=== PATIENT | female | born 1965 | race Caucasian/White ===

== ENCOUNTER 2016-09-29 20:38 | Observation (INO) | payer OTHER ==
[~2016-09-29] VITALS: Ht 175.3 cm; Wt 77.7 kg
[~2016-09-29 20:38] MED LIST: POLY10O LEFT EYE
[2016-09-29] MEDS ORDERED: SODIUM CHLOR 0.9% 1000 ML INJ 1,000 ML IV ONE ×2 (20:42→22:30)
[2016-09-29] MEDS ORDERED: ACTIVATED CHARCOAL LIQUID 25 GM/120 ML BTL PO/NG ONE (20:45)
[2016-09-29] MEDS ORDERED: SODIUM CHLORIDE 0.9% FLUSH 5 ML FLUSH IVF PRN (20:45)
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
[2016-09-29] MEDS ORDERED: ONDANSETRON HCL 4 MG/2 ML VIAL ONE (21:00)
[2016-09-29 21:32] LABS: BLOOD GAS BASE EXCESS 0.4 mmol/L (-2-2); BLOOD GAS CARBOXYHEMOGLOBIN 5.4 % (0-4); BLOOD GAS HCO3 24 mmol/L (22-26); BLOOD GAS METHEMOGLOBIN 2.1 % (0-2); BLOOD GAS O2 HGB SATURATION 90 % (90-100); BLOOD GAS OXYGEN CONTENT 17.8 Vol % (12.0-20.0); BLOOD GAS PCO2 38 mmHg (38-42); BLOOD GAS PO2 89 mmHG (61-120); CRITICAL VALUE YES; TEMP CORR TO 98.6
[2016-09-29 21:33] LABS: DRAW SITE RT RADIAL; FIO2 21 %; NUMBER OF ARTERIAL PUNCTURES 1; OXYGEN DEVICE ROOM AIR; STAT NO; ULNAR PULSE PRESENT
[2016-09-29 21:35] VITALS: BP 125/78; PULSE 65; RESP 16; TEMP 98.5; O2SAT 98
[2016-09-29 21:37] VITALS: RESP 16
--- NOTE | 2016-09-29 21:38 | RADRPT ---
EXAM DATE/TIME: 09/29/2016 21:00 [facility] COMPARISON: No previous studies available for comparison. INDICATIONS : Syncopal episode. MEDICAL HISTORY : None. SURGICAL HISTORY : None. ENCOUNTER: Initial ACUITY: 1 day PAIN SCORE: 0/10 LOCATION: Bilateral chest FINDINGS: A single view of the chest demonstrates the lungs to be symmetrically aerated without evidence of mas s, infiltrate or effusion. The cardiomediastinal contours are unremarkable. Osseous structures are intact. CONCLUSION: No acute disease. Timbo Marcus MD on September 29, 2016 at 21:36 Board Certified Radiologist. This report was verified electronically.
[2016-09-29 22:19] LABS: AUTOMATED NEUTROPHIL # 3.2 TH/MM3 (1.8-7.7); BASOPHIL % 0.4 % (0.0-2.0); EOSINOPHIL # 0.1 TH/MM3 (0-0.4); EOSINOPHIL % 1.8 % (0.0-4.0); HEMATOCRIT 41.8 % (35.0-46.0); HEMO FLAGS DIFF FINAL; LYMPH % 34.3 % (9.0-44.0); MEAN CELL VOLUME 85.8 FL (80.0-100.0); MEAN CORPUSCULAR HEMOGLOBIN 28.5 PG (27.0-34.0); MEAN CORPUSCULAR HGB CONC 33.2 % (32.0-36.0); MONO % 8.8 % (0.0-8.0); NEUT % 54.7 % (16.0-70.0); PLATELET COUNT 176 TH/MM3 (150-450); RED BLOOD COUNT 4.87 MIL/MM3 (4.00-5.30); RED CELL DISTRIBUTION WIDTH 13.7 % (11.6-17.2); WHITE BLOOD COUNT 5.9 TH/MM3 (4.0-11.0)
[2016-09-29 22:30] LABS: APTT (PATIENT) 23.6 SEC (24.3-30.1); PROTHROMBIN TIME - PATIENT 10.7 SEC (9.8-11.6)
[2016-09-29] MEDS ORDERED: ONDANSETRON HCL 4 MG/2 ML VIAL IV ONE (22:30)
[2016-09-29 22:32] LABS: AMPHETAMINE, URINE POS (NEG); BARBITURATES, URINE NEG (NEG); COCAINE, URINE NEG (NEG)
[2016-09-29 22:35] LABS: BACTERIA, URINE RARE /hpf; BLOOD, URINE SMALL (NEG); COMMENT (UR) CULT NOT INDICATED; CULTURE IF INDICATED CULT NOT INDICATED; GLUCOSE,URINE NEG (NEG); KETONE, URINE NEG (NEG); NITRITE,URINE NEG (NEG); SQUAMOUS EPITHELIAL CELL URINE <1 /hpf (0-5); URINE COLOR YELLOW (YELLW/STRAW)
[2016-09-29 22:38] LABS: ALT (GPT) 15 U/L (10-53); ANION GAP 10 MEQ/L (5-15); AST (GOT) 11 U/L (15-37); BICARBONATE 25.5 MEQ/L (21.0-32.0); BLOOD UREA NITROGEN 8 MG/DL (7-18); CHLORIDE 107 MEQ/L (98-107); GLOMERULAR FILTRATION RATE 85 ML/MIN (>89); SODIUM (NA) 142 MEQ/L (136-145)
[2016-09-29 22:42] LABS: ACETAMINOPHEN LESS THAN 2.0 MCG/ML (10.0-30.0); ALKALINE PHOSPHATASE 55 U/L (45-117); BETA HCG QUANT LESS THAN 1 MIU/ML (0-5); TOTAL BILIRUBIN ADULT 0.3 MG/DL (0.2-1.0)
[2016-09-29] MEDS ORDERED: POTASSIUM CHLORIDE 20 MEQ CONTROLLED RELEASE TAB PO ONE (23:15)
[2016-09-29 23:52] VITALS: BP 130/77; PULSE 85; RESP 16; O2SAT 99
[2016-09-30] VITALS (9 sets, daily range): BP systolic 112–126; BP diastolic 57–78; PULSE 69–84; RESP 14–17; TEMP 97.7; O2SAT 96–98
[2016-09-30] MEDS ORDERED: SODIUM CHLORIDE 0.9% FLUSH 5 ML FLUSH FLUSH PRN (00:30)
[2016-09-30] MEDS ORDERED: NALOXONE HCL 0.4 MG/ML AMP IV PRN (00:30)
[2016-09-30] MEDS ORDERED: ONDANSETRON HCL 4 MG/2 ML VIAL IVP PRN (00:30)
[2016-09-30] MEDS: SODIUM CHLOR 0.9% 1000 ML INJ 1,000 ML IV SCH ×3 (01:19→20:17)
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
[2016-09-30] MEDS: SODIUM CHLORIDE 0.9% FLUSH 5 ML FLUSH FLUSH SCH ×2 (08:46→21:49)
[2016-09-30] MEDS: FAMOTIDINE 20 MG TAB PO SCH ×2 (08:46→21:48)
[2016-09-30] MEDS: HEPARIN SODIUM - SQ 10,000 UNITS/ML VIAL SQ SCH ×2 (08:46→21:48)
[2016-09-30 09:38] LABS: HEMATOCRIT 40.3 % (35.0-46.0); MEAN CELL VOLUME 86.3 FL (80.0-100.0); MEAN CORPUSCULAR HEMOGLOBIN 28.6 PG (27.0-34.0); MEAN CORPUSCULAR HGB CONC 33.1 % (32.0-36.0); PLATELET COUNT 186 TH/MM3 (150-450); RED BLOOD COUNT 4.67 MIL/MM3 (4.00-5.30); RED CELL DISTRIBUTION WIDTH 14.1 % (11.6-17.2); REVIEW FLAG FINAL
[2016-09-30 09:56] LABS: BICARBONATE 24.5 MEQ/L (21.0-32.0); POTASSIUM 3.5 MEQ/L (3.5-5.1)
[2016-09-30] MEDS ORDERED: POTASSIUM CL 40 MEQ/30 ML LIQ UDC PO ONE (11:15)
--- NOTE | 2016-09-30 11:35 | EKG ---
Date Performed: 09/29/2016 Time Performed: 20:51:54 PTAGE: 51 years EKG: Sinus rhythm NORMAL ECG INTERPRETATION BASED ON A DEFAULT AGE OF 40 YEARS NO PREVIOUS TRACING DOCTOR: Emil Arenas Interpretating Date/Time 09/30/2016 11:35:21
--- NOTE | 2016-09-30 11:48 | MG ---
cc: ROMERO BOBO M.D. Lab No: [id number] Date: 09/30/2016 Age: ___ Sex: F Race: __ TECHNIQUE 17 channel EEG DESCRIPTION The patient is described as being asleep through much of the tracing and indeed sleep spindles are identified as well as slowing in the theta and delta frequencies. During wakefulness, there is a normal alpha rhythm at about 8-9 Hz, amplitude 20-30 microvolts. Several times during the tracing during periods of sleep, sharp waves are identified in bilateral frontal parietal and temporal areas. These do not appear to be vertex sharp waves, but are concerning for possible epileptiform discharges. Again, they are only occurring during sleep not during wakefulness. Apparently there is no clinical correlative seizure. Hyperventilation was done with no change in the background rhythm. Photic stimulation results in a fairly well-developed symmetrical driving response. INTERPRETATION Abnormal study on the basis of sharp activity identified bilaterally during sleep. MD MELBA Weber/VICENTE /11:09 AM /11:44 AM
[2016-09-30] MEDS ORDERED: FOSPHENYTOIN SODIUM 500 MG PE/10 ML VIAL IM ONE (12:30)
[2016-09-30] MEDS ORDERED: FOSPHENYTOIN INJ 1,000 MGPE in SODIUM CHLORIDE 0.9% INJ 100 ML IV ONE (14:00)
--- NOTE | 2016-09-30 15:11 | PD.CONS ---
[facility] Service Critical Care Medicine Consult Requested By Dr. Velez Reason for Consult aspirin overdose Primary Care Physician Roland Hassan M.D. History of Present Illness This is a 51yF who presented to the [place] emergency department around 9pm last night after she reportedly took 15 benadryl tablets and 15 aspirin tablets. she was initially sleepy and then had a witnessed possible seizure episode. poison control was contacted and recommended against alkalinization and close monitoring. she has remained in the emergency department and has been monitored. this morning she had a screening EEG which the preliminary results are that there are some sharp waves bilaterally which could be early epileptiform discharges. critical care medicine has been consulted for concern of aspirin toxicity with possible EEG evidence of seizures. I evaluated the patient. she is awake and alert and comfortable. she denies chest pain, headache, nausea, vomiting, dizziness, shortness of breath, fever, chills. Review of Systems Constitutional: DENIES: Diaphoretic episodes, Fatigue, Fever, Chills, Dizziness Respiratory: DENIES: Cough, Shortness of breath Cardiovascular: DENIES: Chest pain, Syncope, Dyspnea on Exertion Gastrointestinal: DENIES: Abdominal pain, Diarrhea, Nausea, Vomiting Neurologic: DENIES: Headache, Localized weakness Past Family Social History Allergies: Coded Allergies: No Known Allergies (Verified , 09/29/16) Past Medical History Depression Tobacco abuse Past Surgical History Cessarian Delivery Reported Medications none Active Ordered Medications See MAR Family History reviewed in the chart and found to be noncontributory to her acute illness. Social History 1ppd smoker. no etoh, no doa. Physical Exam Vital Signs Vital Signs Date Time Temp Pulse Resp B/P Pulse Ox O2 Delivery O2 Flow Rate FiO2 09/30/16 11:36 70 14 118/61 96 Room Air 09/30/16 08:19 96 21 09/30/16 07:10 112 16 96 Room Air 09/30/16 07:10 70 16 112/69 96 Room Air 09/30/16 05:40 69 16 126/71 96 Room Air 09/30/16 03:02 84 16 126/78 98 Room Air 09/30/16 01:00 98 09/29/16 23:52 85 16 130/77 99 Room Air 09/29/16 21:37 65 98 Room Air 09/29/16 21:37 16 Room Air 09/29/16 21:35 98.5 65 16 125/78 98 Physical Exam Gen: awake, alert, nad. HEENT: perrla. mucous membranes moist. NECK: trachea midline, no jvd. CHEST: unlabored respirations. equal chest rise. CV: normal rate, regular rhythm. Extr: no peripheral edema Neuro: RASS 0, GCS 15. Laboratory Laboratory Tests Test 09/29/16 09/29/16 09/29/16 09/30/16 21:24 21:45 23:35 01:35 Blood Gas Puncture Site RT RADIAL Blood Gas Patient Temperature 98.6 Blood Gas HCO3 24 Blood Gas Base Excess 0.4 Blood Gas Oxygen Saturation 90 Arterial Blood pH 7.42 Arterial Blood Partial 38 Pressure CO2 Arterial Blood Partial 89 Pressure O2 Arterial Blood Oxygen Content 17.8 Arterial Blood 5.4 Carboxyhemoglobin Arterial Blood Methemoglobin 2.1 Blood Gas Hemoglobin 14.0 Oxygen Delivery Device ROOM AIR Blood Gas Inspired Oxygen 21 White Blood Count 5.9 Red Blood Count 4.87 Hemoglobin 13.9 Hematocrit 41.8 Mean Corpuscular Volume 85.8 Mean Corpuscular Hemoglobin 28.5 Mean Corpuscular Hemoglobin 33.2 Concent Red Cell Distribution Width 13.7 Platelet Count 176 Mean Platelet Volume 10.9 Neutrophils (%) (Auto) 54.7 Lymphocytes (%) (Auto) 34.3 Monocytes (%) (Auto) 8.8 Eosinophils (%) (Auto) 1.8 Basophils (%) (Auto) 0.4 Neutrophils # (Auto) 3.2 Lymphocytes # (Auto) 2.0 Monocytes # (Auto) 0.5 Eosinophils # (Auto) 0.1 Basophils # (Auto) 0.0 CBC Comment DIFF FINAL Differential Comment Prothrombin Time 10.7 Prothromb Time International 1.0 Ratio Activated Partial 23.6 Thromboplast Time Urine Color YELLOW Urine Turbidity CLEAR Urine pH 6.0 Urine Specific [place] 1.012 Urine Protein NEG Urine Glucose (UA) NEG Urine Ketones NEG Urine Occult Blood SMALL Urine Nitrite NEG Urine Bilirubin NEG Urine Urobilinogen LESS THAN 2.0 Urine Leukocyte Esterase SMALL Urine RBC 1 Urine WBC 6 Urine Squamous Epithelial <1 Cells Urine Bacteria RARE Microscopic Urinalysis Comment CULT NOT INDICATED Urine Osmolality 398 Sodium Level 142 Potassium Level 3.0 Chloride Level 107 Carbon Dioxide Level 25.5 Anion Gap 10 Blood Urea Nitrogen 8 Creatinine 0.72 Estimat Glomerular Filtration 85 Rate Random Glucose 70 Serum Osmolality 292 Calcium Level 8.6 Total Bilirubin 0.3 Aspartate Amino Transf 11 (AST/SGOT) Alanine Aminotransferase 15 (ALT/SGPT) Alkaline Phosphatase 55 Total Protein 6.6 Albumin 3.5 Human Chorionic Gonadotropin, LESS THAN 1 Quant Salicylates Level 13.6 14.0 16.3 Urine Opiates Screen NEG Acetaminophen Level LESS THAN 2.0 Urine Barbiturates Screen NEG Urine Amphetamines Screen POS Urine Benzodiazepines Screen NEG Urine Cocaine Screen NEG Urine Cannabinoids Screen NEG Ethyl Alcohol Level LESS THAN 3 Test 09/30/16 09/30/16 09/30/16 04:05 05:27 09:20 Salicylates Level 19.2 18.8 18.1 White Blood Count 6.0 Red Blood Count 4.67 Hemoglobin 13.4 Hematocrit 40.3 Mean Corpuscular Volume 86.3 Mean Corpuscular Hemoglobin 28.6 Mean Corpuscular Hemoglobin 33.1 Concent Red Cell Distribution Width 14.1 Platelet Count 186 Mean Platelet Volume 10.4 Sodium Level 143 Potassium Level 3.5 Chloride Level 113 Carbon Dioxide Level 24.5 Anion Gap 6 Blood Urea Nitrogen 5 Creatinine 0.58 Estimat Glomerular Filtration 110 Rate Random Glucose 103 Calcium Level 8.0 Result Diagram: 09/30/1691909/30/16919 Assessment and Plan Assessment and Plan Assessment: 51yF with intentional overdose of aspirin and benadryl. I called poison control and spoke with Shereen regarding this case. Per poison control, they have cleared her from a toxicologic standpoint. From their standpoint, she is cleared for discharge to a psychiatric unit, unless her physicians have other medical indications for work-up. From my standpoint, she is alert and oriented and neuro intact. She has been cleared by poison control. She does not have an indication for ICU admission at this time. From a seizure perspective, she does not have a past history of seizures, and I think it is a low risk, now that she is cleared by poison control. I think it is reasonable to have neurology weigh in. Recommendations: 1. Aspirin overdose -- cleared by poison control (spoke with Shereen). -- no additional medical management needed 2. Possible seizure like activity on EEG -- agree with neurology consult for opinion -- does not have a seizure history. I do not feel strongly about continuing prophylactic anti-convulsants unless neurology requests it. 3. Suicide attempt -- agree with [place] Act -- will need inpatient psych when medically cleared 4. Disposition -- does not meet ICU criteria -- does not meet telemetry criteria -- will admit to floor bed. Critical Care medicine team will sign off at this time. Please re-consult as needed. Discussed Condition With Poison control: Shereen Tejeda,Jesus Albarado MD Sep 30, 2016 15:11
[2016-09-30 15:16] LABS: BICARBONATE 25.1 MEQ/L (21.0-32.0); POTASSIUM 4.4 MEQ/L (3.5-5.1)
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
[2016-09-30] MEDS ORDERED: PILL SPLITTER OTHER PRN (15:30)
--- NOTE | 2016-09-30 15:31 | RADRPT ---
EXAM DATE/TIME: 09/30/2016 15:16 [facility] COMPARISON: CT CERVICAL SPINE W/O CONTRAST W 3D RECON, April 25, 2012, 21:05. INDICATIONS : Altered mental status; possible overdose. RADIATION DOSE: 38.55 CTDIvol (mGy) MEDICAL HISTORY : None SURGICAL HISTORY : None. ENCOUNTER: Initial ACUITY: 1 day PAIN SCALE: 0/10 LOCATION: cranial TECHNIQUE: Multiple contiguous axial images were obtained of the head. Using automated exposure control and adj ustment of the mA and/or kV according to patient size, radiation dose was kept as low as reasonably a chievable to obtain optimal diagnostic quality images. FINDINGS: CEREBRUM: The ventricles are normal for age. No evidence of midline shift, mass lesion, hemorrhage or acute in farction. No extra-axial fluid collections are seen. POSTERIOR FOSSA: The cerebellum and brainstem are intact. The 4th ventricle is midline. The cerebellopontine angle i s unremarkable. EXTRACRANIAL: The visualized portion of the orbits is intact. SKULL: The calvaria is intact. No evidence of skull fracture. CONCLUSION: No acute abnormality identified. Raffi Chandler MD on September 30, 2016 at 15:28 Board Certified Radiologist. This report was verified electronically.
[2016-09-30 17:57] LABS: BICARBONATE 25.3 MEQ/L (21.0-32.0); POTASSIUM 3.6 MEQ/L (3.5-5.1)
--- NOTE | 2016-09-30 18:11 | PD.CONS ---
History of Present Illness Service Neurology Consult Requested By medical Reason for Consult abnormal eeg Primary Care Physician Roland Hassan M.D. History of Present Illness 51yF who presented to the [place] emergency department around 9pm last night after she reportedly took 15 benadryl tablets and 15 aspirin tablets. she was initially sleepy and then had a witnessed possible seizure episode. poison control was contacted and recommended against alkalinization and close monitoring. she has remained in the emergency department and has been monitored. no hx of sz's. no hx of head trauma, tia or stroke. seen by psych and dx'd with recurrent MDD. started on clonazepam by psych. works as an RN. Review of Systems as above and admit hp Past Family Social History Allergies: Coded Allergies: No Known Allergies (Verified , 09/29/16) Past Medical History Depression Tobacco abuse Past Surgical History Cesarian Delivery Reported Medications none Active Ordered Medications See MAR Family History reviewed in the chart and found to be noncontributory to her acute illness. Social History 1ppd smoker. no etoh, no doa. Review of Systems All other ROS: ROS reviewed as documented in chart Past Family Social History Allergies: Coded Allergies: No Known Allergies (Verified , 09/29/16) Active Ordered Medications Current Medications Medications (Trade) Dose Ordered Sig/Yuri Route Start Time Stop Time Status Last Admin (NS 1000 ml Inj) 1,000 ml @ 100 mls/hr Q10H IV 09/30/16 00:17 09/30/16 10:54 (NS Flush) 2 ml UNSCH PRN FLUSH 09/30/16 00:30 (NS Flush) 2 ml BID FLUSH 09/30/16 09:00 09/30/16 08:46 (Zofran Inj) 4 mg Q6H PRN IVP 09/30/16 00:30 (Heparin Inj) 5,000 units Q12H SQ 09/30/16 09:00 (Narcan Inj) 0.4 mg UNSCH PRN IV 09/30/16 00:30 (Pepcid) 20 mg BID PO 09/30/16 09:00 09/30/16 08:46 (Paxil) 10 mg DAILY PO 10/01/16 09:00 (KlonoPIN) 0.5 mg Q12HR PO 09/30/16 21:00 (Pill Splitter) 1 ea UNSCH PRN OTHER 09/30/16 15:30 Exam I&O / VS Vital Signs Date Time Temp Pulse Resp B/P Pulse Ox O2 Delivery O2 Flow Rate FiO2 09/30/16 15:35 71 15 120/64 97 Room Air 09/30/16 11:36 70 14 118/61 96 Room Air 09/30/16 08:19 96 21 09/30/16 07:10 112 16 96 Room Air 09/30/16 07:10 70 16 112/69 96 Room Air 09/30/16 05:40 69 16 126/71 96 Room Air 09/30/16 03:02 84 16 126/78 98 Room Air 09/30/16 01:00 98 09/29/16 23:52 85 16 130/77 99 Room Air 09/29/16 21:37 65 98 Room Air 09/29/16 21:37 16 Room Air 09/29/16 21:35 98.5 65 16 125/78 98 General: Alert and Oriented, No acute distress Eye: EOMI Respiratory: Non-labored respirations Cardiology: Normal rate Neurologic: Alert, Normal sensory, Normal motor, No focal defects, CN II-XII intact, Normal DTR's Psychiatric: Cooperative, Appropriate mood & affect, Normal judgement, Non- suicidal Exam Comments drowsy but easily arousable, ox 3. pres: Obama, able to name objects, ou 3-2mm, face sym, no drift, no focal weakness Review/Management Diagnosis/Plan: (1) seizure vs syncope Plan: abnormal eeg likely 2/2 excessive benadryl recs started on clonazepam by psych which should help eeg changes will add iv cerebryx for now repeat eeg in 1-2 days no driving/climbing heights/swimming x 6 months of being sz/spell free follow exam (2) Salicylate overdose Plan: med/ccm on case (3) Major depressive disorder, recurrent Plan: seen by psych (4) Intentional overdose of drug in tablet form Plan: psych Problem Qualifiers (1) Salicylate overdose: Qualified Code: T39.092A - Salicylate overdose, intentional self-harm, initial encounter (2) Major depressive disorder, recurrent: Alfie Contreras MD Sep 30, 2016 18:11
[2016-09-30] MEDS ORDERED: FOSPHENYTOIN INJ 1,000 MGPE in SODIUM CHLORIDE 0.9% INJ 50 ML IV ONE (19:00)
[2016-09-30] MEDS: clonazePAM 0.5 MG TAB PO SCH (19:28)
[2016-09-30] MEDS ORDERED: ZOLPIDEM TARTRATE 5 MG TAB PO SCH (21:30)
[2016-10-01] VITALS: BP 100/55; PULSE 73; RESP 20; TEMP 97.6; O2SAT 98
[2016-10-01 04:00] VITALS: BP 98/52; PULSE 78; RESP 20; TEMP 98.2; O2SAT 97
[2016-10-01] MEDS ORDERED: FOSPHENYTOIN SODIUM 100 MG PE/2 ML VIAL IV SCH (08:00)
[2016-10-01 08:58] LABS: POTASSIUM 3.3 MEQ/L (3.5-5.1)
[2016-10-01] MEDS: clonazePAM 0.5 MG TAB PO SCH (08:59)
[2016-10-01] MEDS: HEPARIN SODIUM - SQ 10,000 UNITS/ML VIAL SQ SCH (09:00)
[2016-10-01] MEDS: SODIUM CHLORIDE 0.9% FLUSH 5 ML FLUSH FLUSH SCH (09:00)
[2016-10-01] MEDS: FAMOTIDINE 20 MG TAB PO SCH (09:00)
[2016-10-01] MEDS ORDERED: PARoxetine HCL 20 MG TAB PO SCH (09:00)
[2016-10-01 09:02] VITALS: O2SAT 96
--- NOTE | 2016-10-01 09:16 | HHI.PR ---
Review/Management Diagnosis/Plan: (1) seizure vs syncope Plan: abnormal eeg likely 2/2 excessive benadryl recs neuro stable change to dilantin; d/c this med on discharge repeat eeg ok for psych floor if needed; f/u psych eval no driving/climbing heights/swimming x 6 months of being sz/spell free follow exam (2) Salicylate overdose Plan: med/ccm on case (3) Major depressive disorder, recurrent Plan: seen by psych (4) Intentional overdose of drug in tablet form Plan: psych Subjective Subjective Comments No acute events reported No headache; no sz; denies any suicidal ideation/thoughts No chest pain No dyspnea Active Medications Current Medications Medications (Trade) Dose Ordered Sig/Yuri Route Start Time Stop Time Status Last Admin (NS Flush) 2 ml UNSCH PRN FLUSH 09/30/16 00:30 (NS Flush) 2 ml BID FLUSH 09/30/16 09:00 10/01/16 09:00 (Zofran Inj) 4 mg Q6H PRN IVP 09/30/16 00:30 (Heparin Inj) 5,000 units Q12H SQ 09/30/16 09:00 (Narcan Inj) 0.4 mg UNSCH PRN IV 09/30/16 00:30 (Pepcid) 20 mg BID PO 09/30/16 09:00 09/30/16 08:46 (Paxil) 10 mg DAILY PO 10/01/16 09:00 (KlonoPIN) 0.5 mg Q12HR PO 09/30/16 21:00 10/01/16 08:59 (Pill Splitter) 1 ea UNSCH PRN OTHER 09/30/16 15:30 (Dilantin) 300 mg HS PO 10/01/16 21:00 Allergies Allergies Coded Allergies No Known Allergies (Verified09/29/16) Review of Systems All other ROS: ROS reviewed as documented in chart Exam I&O / VS 09/30/16 09/30/16 10/01/16 14:59 22:59 06:59 Intake Total 360 ml 1080 ml Balance 360 ml 1080 ml Intake Oral 360 ml 1080 ml # Voids 2 2 # Bowel Movements 0 0 Vital Signs Date Time Temp Pulse Resp B/P Pulse Ox O2 Delivery O2 Flow Rate FiO2 10/01/16 04:00 98.2 78 20 98/52 97 10/01/16 00:00 97.6 73 20 100/55 98 09/30/16 20:00 97.7 71 16 123/57 98 09/30/16 18:33 72 17 121/68 96 Room Air 09/30/16 15:35 71 15 120/64 97 Room Air 09/30/16 11:36 70 14 118/61 96 Room Air General: Alert and Oriented, No acute distress Eye: EOMI Respiratory: Non-labored respirations Cardiology: Normal rate Neurologic: Alert, Normal sensory, Normal motor, No focal defects, CN II-XII intact, Normal DTR's Psychiatric: Cooperative, Appropriate mood & affect, Normal judgement, Non- suicidal Exam Comments drowsy but easily arousable, ox 3. pres: Obama, able to name objects, ou 3-2mm, face sym, no drift, no focal weakness Objective Micro and Labs Laboratory Tests Test 09/30/16 09/30/16 09/30/16 09/30/16 09:20 13:20 16:52 18:05 White Blood Count 6.0 Red Blood Count 4.67 Hemoglobin 13.4 Hematocrit 40.3 Mean Corpuscular Volume 86.3 Mean Corpuscular Hemoglobin 28.6 Mean Corpuscular Hemoglobin 33.1 Concent Red Cell Distribution Width 14.1 Platelet Count 186 Mean Platelet Volume 10.4 Sodium Level 143 144 146 Potassium Level 3.5 4.4 3.6 Chloride Level 113 113 113 Carbon Dioxide Level 24.5 25.1 25.3 Anion Gap 6 6 8 Blood Urea Nitrogen 5 6 7 Creatinine 0.58 0.68 0.81 Estimat Glomerular Filtration 110 91 75 Rate Random Glucose 103 55 112 Calcium Level 8.0 8.3 8.0 Salicylates Level 18.1 16.6 15.1 Phenytoin (Dilantin) Level 9.9 Test 10/01/16 07:10 Sodium Level 143 Potassium Level 3.3 Chloride Level 110 Carbon Dioxide Level 26.0 Anion Gap 7 Blood Urea Nitrogen 7 Creatinine 0.57 Estimat Glomerular Filtration 112 Rate Random Glucose 95 Calcium Level 7.9 Phenytoin (Dilantin) Level 8.4 Problem Qualifiers (1) Salicylate overdose: Qualified Code: T39.092A - Salicylate overdose, intentional self-harm, initial encounter (2) Major depressive disorder, recurrent: Alfie Contreras MD Oct 01, 2016 09:16
--- NOTE | 2016-10-01 10:35 | HHI.PR ---
Subjective Subjective Remarks more awake, depressed affect, not keeping eye contact oriented x 3 no c/o pain no fever no seizures observed sitter at bsd Review of Systems Constitutional Constitutional Remarks 12 point ROS difficult to complete, limited Vitals/Results Intake & Output 09/30/16 09/30/16 10/01/16 15:00 23:00 07:00 Intake Total 360 ml 1080 ml Balance 360 ml 1080 ml Intake Oral 360 ml 1080 ml # Voids 2 2 # Bowel Movements 0 0 Vital Signs Vital Signs Date Time Temp Pulse Resp B/P Pulse Ox O2 Delivery O2 Flow Rate FiO2 10/01/16 04:00 98.2 78 20 98/52 97 10/01/16 00:00 97.6 73 20 100/55 98 09/30/16 20:00 97.7 71 16 123/57 98 09/30/16 18:33 72 17 121/68 96 Room Air 09/30/16 15:35 71 15 120/64 97 Room Air 09/30/16 11:36 70 14 118/61 96 Room Air CBC/BMP: 09/30/16 0920 10/01/16 0710 Lab Results Laboratory Tests Test 09/30/16 09/30/16 09/30/16 10/01/16 13:20 16:52 18:05 07:10 Sodium Level 144 MEQ/L 146 MEQ/L 143 MEQ/L Potassium Level 4.4 MEQ/L 3.6 MEQ/L 3.3 MEQ/L Chloride Level 113 MEQ/L 113 MEQ/L 110 MEQ/L Carbon Dioxide Level 25.1 MEQ/L 25.3 MEQ/L 26.0 MEQ/L Anion Gap 6 MEQ/L 8 MEQ/L 7 MEQ/L Blood Urea Nitrogen 6 MG/DL 7 MG/DL 7 MG/DL Creatinine 0.68 MG/DL 0.81 MG/DL 0.57 MG/DL Estimat Glomerular Filtration 91 ML/MIN 75 ML/MIN 112 ML/MIN Rate Random Glucose 55 MG/DL 112 MG/DL 95 MG/DL Calcium Level 8.3 MG/DL 8.0 MG/DL 7.9 MG/DL Salicylates Level 16.6 MG/DL 15.1 MG/DL Phenytoin (Dilantin) Level 9.9 MCG/ML 8.4 MCG/ML Physical Exam General General Appearance: Well Developed, No Acute Distress, Comfortable Eyes Eye Exam: Pupils Equal, Pupils Reactive Eye Remarks right eye conjunctiva red, no drainage Ears & Nose Ears & Nose Exam: Nasal Mucosa [place] Throat Throat Exam: Oral Mucosa [place] & Moist Neck Neck Exam: Neck Supple, Trachea Midline Pulmonary Resp Exam: Clear Bilaterally Cardiology CV Exam: Regular Gastrointestinal/Abdomen GI Exam: Soft, Non-Tender, Bowel Sounds Present, Non-Distended Musculoskeletal MS Exam: Joints Intact Integumentary Skin Exam: Warm, Dry Extremeties Extremities Exam: No Edema, Pedal Pulses Palpable Neurologic Neuro Exam: Awake, Oriented, Speech Clear, Moving All Extremities, No Focal Deficits Psychiatric Psych Remarks depressed affect VTE Prophylaxis VTE Prophylaxis Device: SCDs VTE Prophylaxis Meds: Heparin Assessment/Plan Problem List: (1) Intentional overdose of drug in tablet form (2) Hypokalemia (3) Bradycardia (4) seizure vs syncope (5) Salicylate overdose (6) Major depressive disorder, recurrent Assessment/Plan 51 year old female admitted with reported intentional overdose of 1525 milligrams Benadryl tablets, and 63433 milligram aspirin tablets, hx depression , was on Prozac. Initial Salicylate 19.2, trending down to 18.8. Improving, no acidosis, no dysrhythmia -improving, BMP, salicylate levels stable. -Continuous cardiac telemetry -Monitor QRS-stable. -BMP and Salicylate levels q 2-stable now. -DC IVF -Evaluated by Dr. Tejeda yesterday, no need for ICU. Pt. stable, he spoke to poison control, no need for further tx, no need for tele. Reported seizure vs syncope with hypoxia, bradycardia and pallor, no prior hx of seizures, no ETOH abuse. -Seizures precautions -EEG done 09/30 showed sharp activity bilat -CT head ordered, results noted, no acute findings -Consulted Dr. Contreras, given Cerebyx, pt. refused second dose. Agreeable with taking PO Dilantin now. Per Dr. Contreras, EEG changes likely sec. to excessive Benadryl. Recommends to continue AED, change to Dilantin 300 mg PO q hs. Requested second EEG today. Cleared pt. to go to psych. Pt should only take Dilantin while in hospital, she should not continue after discharge. No driving, climbing, swimming x 6 months and no further spells -Second EEG done, results pending. Depression, recurrent, with intentional OD -Appreciate psych input, Dr. Price evaluated, recommends inpatient psych. -psych started Clonazepam and Paxil-continue -Sitter at bsd Hypokalemia' -Replace K Heparin for DVT prophylaxis Pt. stable, cleared for dc to psyche. Needs to continue Dilantin while in hospital and not continue after discharge. Discussed with pt., verbalizes understanding Informed that she can't drive, swim, climb heights x 6 months and not having any episodes Discharge to psych F/U Dr. Contreras after discharge D/W RN D/W Dr. Velez D/W pt This patient was seen by myself and Dr. Velez, this note is written on his behalf. Discharge Minutes: 45 Problem Qualifiers (1) Salicylate overdose: Qualified Code: T39.092A - Salicylate overdose, intentional self-harm, initial encounter (2) Major depressive disorder, recurrent: Mariajose Ge Oct 01, 2016 10:35
[2016-10-01] MEDS ORDERED: POTASSIUM CL 40 MEQ/30 ML LIQ UDC PO ONE (10:45)
[2016-10-01] MEDS ORDERED: PARO20TA2 PO (11:55)
[2016-10-01] MEDS ORDERED: DILA100C PO (11:55)
[2016-10-01] MEDS ORDERED: CLON.5 PO (11:55)
--- NOTE | 2016-10-01 11:55 | HHI.DCPOC ---
Discharge Care Plan Diagnosis: (1) Intentional overdose of drug in tablet form (2) Hypokalemia (3) Bradycardia (4) seizure vs syncope (5) Salicylate overdose (6) Major depressive disorder, recurrent Your Health Problems Are: Anxiety Goals to Promote Your Health * To prevent worsening of your condition and complications * To maintain your health at the optimal level Directions to Meet Your Goals Take your medications as prescribed Follow your dietary instruction Follow activity as directed Keep your appointments as scheduled Take your immunizations and boosters as scheduled If your symptoms worsen call your PCP, if no PCP go to Urgent Care Center or Emergency Room Smoking is Dangerous to Your Health. Avoid second hand smoke Call the 24-hour hour crisis hotline for domestic abuse at Mariajose Ge Oct 01, 2016 11:55
[2016-10-01] MEDS ORDERED: MAGNESIUM HYDROXIDE SUSP 30 ML CUP PO ONE (13:30)
--- NOTE | 2016-10-01 13:39 | HHI.DS ---
Discharge Summary Admission Date Sep 29, 2016 at 23:33 Admitting Diagnosis Aspirin and Benadryl overdose (1) Salicylate overdose Diagnosis: Principal (2) Intentional overdose of drug in tablet form Diagnosis: Principal (3) Hypokalemia Diagnosis: Principal (4) Bradycardia Diagnosis: Principal (5) seizure vs syncope Diagnosis: Principal Brief History The patient is 51 year old female who presented to the [facility] emergency department with a history of reportedly overdosing on 1525 milligrams Benadryl tablets, and 80110 milligram aspirin tablets 45 minutes prior to arrival in the emergency department. While awaiting arrival into the emergency department bed that she was assigned to, the patient's ambulance crew witnessed the patient have what appeared to be a syncopal event, versus seizure activity. The patient reportedly became bradycardic down into the 20s, with O2 saturations briefly down into the 40s, with pallor and diaphoresis that resolved within 30 seconds. Pt reported feeling drowsy after event, no tongue biting or loss of bowel or bladder control. She had no tonic-clonic activity with this. Denies prior history of seizures, no ETOH abuse. The patient reports that she does have a history of depression, she she was on Prozac up until 2 months ago and weaned herself off. Patient followed to have increasing salicylate level. Patient was admitted to the ICU. Patient was seen by wool dyer as well. Poison control called. An aspirate wasn't controlled later on she can be discharged. Patient was seen by neurology because of the abnormal EEG. Patient was started on Celebrex. As per neurologist can be discharged. As patient is on overall a stable medically plan to discharge her to psych facility today. Patient was seen by the psychiatrist and as per psychiatrist need inpatient psychiatry evaluation and management. CBC/BMP: 09/30/16 0920 10/01/16 0710 Significant Findings Laboratory Tests Test 09/29/16 09/29/16 09/30/16 09/30/16 21:24 21:45 09:20 13:20 Arterial Blood 5.4 % (0-4) Carboxyhemoglobin Arterial Blood Methemoglobin 2.1 % (0-2) Monocytes (%) (Auto) 8.8 % (0.0-8.0) Activated Partial 23.6 SEC Thromboplast Time (24.3-30.1) Urine Occult Blood SMALL (NEG) Urine Leukocyte Esterase SMALL (NEG) Urine WBC 6 /hpf (0-5) Urine Bacteria RARE /hpf (NONE) Potassium Level 3.0 MEQ/L (3.5-5.1) Estimat Glomerular Filtration 85 ML/MIN (>89) Rate Random Glucose 70 MG/DL 55 MG/DL (74-106) (74-106) Aspartate Amino Transf 11 U/L (15-37) (AST/SGOT) Acetaminophen Level LESS THAN 2.0 MCG/ML (10.0-30.0) Urine Amphetamines Screen POS (NEG) Chloride Level 113 MEQ/L 113 MEQ/L (98-107) (98-107) Blood Urea Nitrogen 5 MG/DL (7-18) 6 MG/DL (7-18) Calcium Level 8.0 MG/DL 8.3 MG/DL (8.5-10.1) (8.5-10.1) Test 09/30/16 09/30/16 10/01/16 16:52 18:05 07:10 Sodium Level 146 MEQ/L (136-145) Chloride Level 113 MEQ/L 110 MEQ/L (98-107) (98-107) Estimat Glomerular Filtration 75 ML/MIN (>89) Rate Random Glucose 112 MG/DL (74-106) Calcium Level 8.0 MG/DL 7.9 MG/DL (8.5-10.1) (8.5-10.1) Phenytoin (Dilantin) Level 9.9 MCG/ML 8.4 MCG/ML (10.0-20.0) (10.0-20.0) Potassium Level 3.3 MEQ/L (3.5-5.1) Pt Condition on Discharge: Stable Discharge Disposition: Disc to Psych Care Fac Discharge Instructions DIET: Follow Instructions for: Heart Healthy Diet Activities you can perform: Weight Bearing as Amna Other Activity Instructions: NO DRIVING, NO SWIMMING, NO CLIMBING HEIGHTS X 6 MONTHS Follow up Referrals: Neurology - 2 Weeks with Alfie Contreras MD PCP Follow-up New Medications: Clonazepam (Klonopin) 0.5 Mg Tab 0.5 MG PO Q12HR Anxiety and/or Insomnia Days 30 Ref 0 TAB Paroxetine (Paroxetine) 20 Mg Tab 10 MG PO DAILY Depression Control #30 Ref 0 TAB Phenytoin Extended (Dilantin) 100 Mg Cap 300 MG PO HS DO NOT CONTINUE MEDICATION AFTER PT. DISCHARGED FROM PSYCH Seizure Control #30 Radha Davila MD Oct 01, 2016 13:39
[2016-10-01] MEDS ORDERED: NICOTINE 21 MG/24 HR PATCH TD SCH (14:00)
--- NOTE | 2016-10-01 15:49 | MG ---
cc: ROMERO BOBO Lab No: [id number] Date: 10/01/2016 Age: Sex: F Race: TECHNIQUE: 17 channel EEG. DESCRIPTION: Initially normal sleep activity is identified with slowing in the theta range as well as sleep spindles present with no lateralizing features and no epileptiform discharges present. Later in the tracing there does appear to be some sharp activity in bilateral parietal areas. No lateralizing features are seen. Photic stimulation results in a normal driving response. INTERPRETATION: Abnormal study. There is rare sharp activity in bilateral parietal areas suggesting the possibility of seizure focus. No other abnormalities seen. MD MELBA Weber/MIRIAN /3:08 PM /3:45 PM
[2016-10-01] MEDS ORDERED: PHENYTOIN SODIUM 100 MG CAP PO SCH (21:00)
[2016-10-02] MEDS ORDERED: REMOVE OLD NICODERM (NICOTINE) PATCH TD SCH (09:00)
== END 2016-10-01 13:39 ==
LOC: NEPC 20:38 → INTOOBSV 23:33 → NEDA 23:33 → NEDH 09-30 03:33 → N04A 09-30 18:51
PROVIDERS: ADMIT Specialist; ATTEND Specialist
DX: T39.012A Poisoning by aspirin, intentional self-harm, initial encounter (principal); T45.0X2A Poisoning by antiallergic and antiemetic drugs, intentional self-harm, initial encounter; R00.1 Bradycardia, unspecified; E87.6 Hypokalemia; F33.9 Major depressive disorder, recurrent, unspecified; F41.9 Anxiety disorder, unspecified; G47.00 Insomnia, unspecified; Z72.0 Tobacco use; Z91.5 Personal history of self-harm
CPT/HCPCS: 36600; 70450; 71010; 80048; 80053; 80185; 80307; 80329; 81001; 82805; 83930; 83935; 84702; 84703; 85025; 85027; 85610; 85730; 93005; 95819; 96361; 96374; 99291; G0378; J2405; J7030; Q2009; 80320; G0480

== ENCOUNTER 2016-10-01 14:27 | Inpatient (IN) | payer SELFPAY ==
[~2016-10-01] VITALS: Ht 175.3 cm; Wt 75.5 kg
[~2016-10-01 14:27] MED LIST changes: +CLON.5 PO; +DILA100C PO; +PARO20TA2 PO; -POLY10O LEFT EYE
[2016-10-01 14:36] VITALS: BP 144/79; PULSE 84; RESP 16; TEMP 96.5; O2SAT 97
[2016-10-01] MEDS: clonazePAM 0.5 MG TAB PO PRN (23:16)
[2016-10-02] MEDS ORDERED: LORazepam 1 MG TAB PO PRN (04:15)
[2016-10-02] MEDS ORDERED: ACETAMINOPHEN 325 MG TAB PO PRN (04:15)
[2016-10-02] MEDS ORDERED: LORazepam 2 MG/ML VIAL IM PRN ×2 (04:15→22:00)
[2016-10-02] MEDS ORDERED: ALUMINUM/MAGNESIUM/SIMETH 30 ML CUP PO PRN (04:15)
[2016-10-02 06:45] VITALS: BP 112/58; PULSE 74; RESP 18; TEMP 97.7; O2SAT 98
[2016-10-02] MEDS: PARoxetine HCL 20 MG TAB PO SCH (09:00)
[2016-10-02] MEDS: clonazePAM 0.5 MG TAB PO PRN ×2 (09:14→20:38)
[2016-10-02] MEDS: NICOTINE 21 MG/24 HR PATCH T-DERMAL SCH (09:14)
[2016-10-02] MEDS ORDERED: DOCUSATE SODIUM 100 MG CAP PO SCH (10:11)
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
[2016-10-02] MEDS: DOCUSATE SODIUM 100 MG CAP PO SCH ×2 (11:00→20:38)
[2016-10-02] MEDS ORDERED: POLYETHYLENE GLYCOL 17 GM PKG PO PRN (11:00)
--- NOTE | 2016-10-02 11:30 | MB ---
cc: EUGENE VELEZ DATE OF CONSULTATION 10/02/2016 DATE OF [address] Marquez CONSULTING DOCTOR Eugene Velez MD REASON FOR CONSULTATION Assist in medical management. HISTORY OF PRESENT ILLNESS The patient is a 51-year-old female who is known to me from a past admission in the hospital when she was admitted because of salicylate and Benadryl, she took an extra tablet of salicylate and Benadryl and then she was admitted because of the overdose. She has a history of depression. She was on Prozac before and a history of tobacco abuse. The patient was admitted and serum salicylate levels were done and she was monitored. She was seen by a neurologist because of questionable seizure activity. EEG was done twice in the last admission and the last EEG showed the patient had an abnormal study. There was rare sharp activity in the bilateral parietal area suggesting a possible seizure focus. No abnormalities seen. The patient was followed by Dr. Contreras, neurologist. As per Dr. Contreras, she can be discharged from the psych facility. He has recommended Dilantin 300 mg q.h.s. while in the hospital and after hospital, she does not need to be on the Dilantin. The patient is seen in her room in the psych facility 2709 with an RN at bedside. The patient has just complaining of constipation. As per RN, she refused medical magnesium yesterday, but now she is asking for Colace as the Colace is helping her. She denies any complaints other than constipation. PAST MEDICAL HISTORY 1. Depression 2. Tobacco abuse PAST SURGICAL HISTORY MEDICATIONS Reviewed, please see MAR. ALLERGIES The patient has NO KNOWN DRUG ALLERGIES. REVIEW OF SYSTEMS As described above, otherwise negative for 10 systems. PERSONAL AND SOCIAL HISTORY The patient smokes one pack per day. She denies doing any other drugs. She is an RN. FAMILY HISTORY Noncontributory PHYSICAL EXAMINATION The patient is alert, oriented lying on bed without any apparent distress, well-built and well-nourished. VITAL SIGNS: The patient is afebrile, pulse 74, respiratory rate is 18, blood pressure 112/58, pulse of 90, The patient is on room air. HEENT: Head is atraumatic, normocephalic. Eyes, negative conjunctiva. No icterus. Mouth unremarkable. NECK: Supple. No increased JVD. Negative thyromegaly. Central trachea. RESPIRATORY: Chest is clear to auscultation. CARDIOVASCULAR: S1 and S2 audible. Unable to hear an S3 gallop. GI: Abdomen soft, no organomegaly. Positive bowel sounds. MUSCULOSKELETAL: No cyanosis or pedal edema appreciated. RECOVERY AGENT: Grossly intact. SKIN: Warm and dry. PSYCH: Sad affect. Not looking anxious. INVESTIGATION No new investigations available. Labs from the last admission were reviewed. RADIOLOGY DATA Chest x-ray For the last admission and CT on the last admission reviewed. ASSESSMENT 1. Severe depression with intentional overdose of drugs. 2. Status post salicylate overdose. 3. Abnormal EEG 4. Constipation 5. Chronic nicotine abuse RECOMMENDATIONS 1. Psych treatment, evaluation and management as per Psychiatrist. 2. Continue some Phenytoin while in the hospital. Once she is Discharged, it can be DC'd. 3. Encouraged p.o. hydration. 4. Labs for tomorrow morning. 5. The patient has been counseled about anti-smoking. 6. Colace and p.r.n. MiraLax for constipation. 7. Discussed with the patient. 8. Further recommendation to follow as the patient progress. 9. We will follow on an as needed basis. Eugene Velez MD JP/VICENTE /10:50 AM /11:07 AM
[2016-10-02] MEDS: PHENYTOIN SODIUM 100 MG CAP PO SCH (20:38)
[2016-10-02 21:03] VITALS: BP 121/70; PULSE 83; RESP 16; TEMP 98; O2SAT 98
[2016-10-02] MEDS ORDERED: clonazePAM 0.5 MG TAB PO ONE (22:45)
[2016-10-03 00:38] VITALS: BP 121/70; PULSE 83; RESP 16; TEMP 98; O2SAT 98
[2016-10-03 05:43] VITALS: BP 122/82; PULSE 87; RESP 18; TEMP 97.4; O2SAT 98
[2016-10-03 08:33] LABS: ANION GAP 4 MEQ/L (5-15); BICARBONATE 31.9 MEQ/L (21.0-32.0); BLOOD UREA NITROGEN 10 MG/DL (7-18); CHLORIDE 104 MEQ/L (98-107); GLOMERULAR FILTRATION RATE 96 ML/MIN (>89); POTASSIUM 4.1 MEQ/L (3.5-5.1); SODIUM (NA) 140 MEQ/L (136-145)
[2016-10-03 08:36] LABS: HDL CHOLESTEROL 62.2 MG/DL (40.0-60.0); LDL CHOLESTEROL 88 MG/DL (0-99)
[2016-10-03] MEDS: REMOVE OLD NICOTINE PATCH T-DERMAL SCH (09:00)
[2016-10-03] MEDS: ARIPiprazole 5 MG TAB PO SCH (09:31)
[2016-10-03] MEDS: PARoxetine HCL 20 MG TAB PO SCH (09:31)
[2016-10-03] MEDS: DOCUSATE SODIUM 100 MG CAP PO SCH ×2 (09:31→20:36)
[2016-10-03] MEDS: NICOTINE 21 MG/24 HR PATCH T-DERMAL SCH (09:31)
[2016-10-03] MEDS: MAGNESIUM HYDROXIDE SUSP 30 ML CUP PO PRN (09:35)
[2016-10-03] MEDS: clonazePAM 0.5 MG TAB PO PRN ×2 (09:35→21:34)
--- NOTE | 2016-10-03 14:08 | HHI.PYPN ---
Subjective Remarks Pt seen and discussed with staff. She is compliant with medications and tolerating without side effects. She remains depressed and dysphoric. "I feel flat." She denies active SI plan but continues to have feelings that she has no reason to continue living. No behavioral problems on unit. She reports that she is hopeful that medications will help improve mood. Objective Alert: Yes [place]: Person, Place, Date, Situation Mood: Depressed Affect: Flat Memory Intact: Immediate, Recent, Remote Hallucinations: Other (none) Delusions: No Delusion Type: Other (none) Suicidal: Plan (denies), Ideation (feels that she has no reason to live) Homicidal: Ideation (denies) Insight/Judgement poor Labs Test 10/03/16 07:20 Sodium Level 140 MEQ/L Potassium Level 4.1 MEQ/L Chloride Level 104 MEQ/L Carbon Dioxide Level 31.9 MEQ/L Anion Gap 4 MEQ/L Blood Urea Nitrogen 10 MG/DL Creatinine 0.65 MG/DL Estimat Glomerular Filtration 96 ML/MIN Rate Random Glucose 84 MG/DL Calcium Level 8.6 MG/DL Triglycerides Level 82 MG/DL Cholesterol Level 167 MG/DL LDL Cholesterol 88 MG/DL HDL Cholesterol 62.2 MG/DL Cholesterol/HDL Ratio 2.68 RATIO Vitals/IOs Vital Signs Date Time Temp Pulse Resp B/P Pulse Ox O2 Delivery O2 Flow Rate FiO2 10/03/16 05:43 97.4 87 18 122/82 98 Assessment & Plan Problem List: (1) Atypical bipolar disorder ICD Code: F31.89 Assessment & Plan Continue current tx plan. Estimated LOS: days Justification for Cont. Inpt. monitoring for safety Gemma Min MD Oct 03, 2016 14:08
[2016-10-03 14:23] LABS: HEMOGLOBIN A1a 0.9 %; HEMOGLOBIN A1b 1.4 %; HEMOGLOBIN Ao 86.1 %; HEMOGLOBIN LA1C 1.8 %; HEMOGLOBIN P3 3.6 %
--- NOTE | 2016-10-03 16:04 | HHI.PR ---
Subjective Remarks Patient has no bowel movement yet No abnormal pain nausea vomiting No genitourinary symptoms Offering no other complaint Lying comfortably on the vent Patient was seen with female RN in her room Objective Objective Results - Vital Signs Date Time Temp Pulse Resp B/P Pulse Ox O2 Delivery O2 Flow Rate FiO2 10/03/16 05:43 97.4 87 18 122/82 98 10/03/16 00:38 98.0 83 16 121/70 98 10/02/16 21:03 98.0 83 16 121/70 98 Result Diagram: 10/03/16 0720 Other Results Laboratory Tests Test 10/03/16 07:20 Sodium Level 140 Potassium Level 4.1 Chloride Level 104 Carbon Dioxide Level 31.9 Anion Gap 4 Blood Urea Nitrogen 10 Creatinine 0.65 Estimat Glomerular Filtration 96 Rate Random Glucose 84 Hemoglobin A1c 5.4 Calcium Level 8.6 Triglycerides Level 82 Cholesterol Level 167 LDL Cholesterol 88 HDL Cholesterol 62.2 Cholesterol/HDL Ratio 2.68 Physical Exam Physical Exam The patient is alert, oriented lying on bed without any apparent distress, well-built and well-nourished. VITAL SIGNS: Reviewed HEENT: Head is atraumatic, normocephalic. Eyes, negative conjunctiva. No icterus. Mouth unremarkable. NECK: Supple. No increased JVD. Negative thyromegaly. Central trachea. RESPIRATORY: Chest is clear to auscultation. CARDIOVASCULAR: S1 and S2 audible. Unable to hear an S3 gallop. GI: Abdomen soft, no organomegaly. Positive bowel sounds. MUSCULOSKELETAL: No cyanosis or pedal edema appreciated. DENTAL ASSOCIATE: Grossly intact. SKIN: Warm and dry. PSYCH: Sad affect. Not looking anxious. A/P Assessment and Plan 1. Severe depression with intentional overdose of drugs. 2. Status post salicylate overdose. 3. Abnormal EEG 4. Constipation 5. Chronic nicotine abuse RECOMMENDATIONS 1. Psych treatment, evaluation and management as per Psychiatrist. 2. Continue Phenytoin while in the hospital. Once she is Discharged, it can be DC'd. 3. Encouraged p.o. hydration. 4. Labs reviewed. 5. The patient has been counseled about anti-smoking. 6. Colace and p.r.n. MiraLax for constipation. It is not helping plan for Dulcolax suppository 7. Discussed with the patient. 8. We will follow on an as needed basis. Radha Velez MD 7, 2017 16:04
[2016-10-03] MEDS ORDERED: BISACODYL 10 MG SUPP RECTAL ONE (16:15)
[2016-10-03] MEDS: PHENYTOIN SODIUM 100 MG CAP PO SCH (20:37)
[2016-10-03] MEDS ORDERED: PILL SPLITTER OTHER PRN (22:00)
[2016-10-04] MEDS: LORazepam 1 MG TAB PO PRN ×2 (02:00→21:07)
[2016-10-04 06:10] VITALS: BP 122/72; PULSE 81; RESP 16; TEMP 97.9
[2016-10-04] MEDS: ARIPiprazole 5 MG TAB PO SCH (08:58)
[2016-10-04] MEDS: DOCUSATE SODIUM 100 MG CAP PO SCH ×2 (08:59→21:06)
[2016-10-04] MEDS: NICOTINE 21 MG/24 HR PATCH T-DERMAL SCH (08:59)
[2016-10-04] MEDS: PARoxetine HCL 20 MG TAB PO SCH (08:59)
[2016-10-04] MEDS ORDERED: FLUCONAZOLE 100 MG TAB PO ONE (09:00)
[2016-10-04] MEDS: REMOVE OLD NICOTINE PATCH T-DERMAL SCH (09:00)
[2016-10-04] MEDS: ACETAMIN 325 MG/BUTALBITAL 50 MG/CAFFEINE 40 MG TAB PO PRN ×2 (14:51→21:54)
[2016-10-04] MEDS: clonazePAM 0.5 MG TAB PO PRN (14:54)
--- NOTE | 2016-10-04 19:16 | HHI.PYPN ---
Subjective Remarks Pt seen and discussed with staff. Pt more active in milieu today. She remains depressed with poor motivation and anhedonia. She describes mood as "in a fog, just blah.' She denies medication side effects. No SI/HI. She was given diflucan for yeast infection x 1 dose this morning and reports tolerating without side effects. Objective Alert: Yes [place]: Person, Place, Date, Situation Mood: Depressed Affect: Flat Memory Intact: Immediate, Recent, Remote Hallucinations: Other (none) Delusions: No Delusion Type: Other (none) Suicidal: Plan (denies), Ideation (feels that she has no reason to live) Homicidal: Ideation (denies) Insight/Judgement poor Vitals/IOs Vital Signs Date Time Temp Pulse Resp B/P Pulse Ox O2 Delivery O2 Flow Rate FiO2 10/04/16 06:10 97.9 81 16 122/72 10/03/16 05:43 98 Assessment & Plan Problem List: (1) Atypical bipolar disorder ICD Code: F31.89 Assessment & Plan Continue current tx plan. Estimated LOS: days Justification for Cont. Inpt. impairments in safety Gemma Min MD Oct 04, 2016 19:16
[2016-10-04 19:42] VITALS: BP 135/84; PULSE 96; RESP 18; TEMP 97.7; O2SAT 99
[2016-10-04] MEDS: PHENYTOIN SODIUM 100 MG CAP PO SCH (21:07)
[2016-10-04] MEDS: MAGNESIUM HYDROXIDE SUSP 30 ML CUP PO PRN (21:07)
[2016-10-05 06:34] VITALS: BP 116/55; PULSE 83; RESP 18; TEMP 98.4; O2SAT 96
[2016-10-05] MEDS: NICOTINE 21 MG/24 HR PATCH T-DERMAL SCH (09:00)
[2016-10-05] MEDS: REMOVE OLD NICOTINE PATCH T-DERMAL SCH (09:00)
[2016-10-05] MEDS: PARoxetine HCL 20 MG TAB PO SCH (09:00)
[2016-10-05] MEDS: DOCUSATE SODIUM 100 MG CAP PO SCH (09:12)
[2016-10-05] MEDS: ARIPiprazole 5 MG TAB PO SCH (09:12)
[2016-10-05] MEDS ORDERED: ARIP1TAB11 PO (09:16)
[2016-10-05] MEDS ORDERED: PARO20TA2 PO (09:16)
[2016-10-05] MEDS ORDERED: CLON.5 PO (09:16)
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
[2016-10-05] MEDS ORDERED: NICO21DI2 T-DERMAL (11:16)
[2016-10-05] MEDS ORDERED: BUTATAB6 PO (11:52)
--- NOTE | 2016-10-05 11:54 | HHI.PR ---
Subjective Remarks had headach yesterday has hx of migrains better with fioricet No abnormal pain nausea vomiting No genitourinary symptoms Offering no other complaint Patient was seen with director phone RN in her room Objective Objective Results - Vital Signs Date Time Temp Pulse Resp B/P Pulse Ox O2 Delivery O2 Flow Rate FiO2 10/05/16 06:34 98.4 83 18 116/55 96 10/04/16 19:42 97.7 96 18 135/84 99 Result Diagram: 10/03/16 0720 Physical Exam Physical Exam The patient is alert, oriented lying on bed without any apparent distress, well-built and well-nourished. VITAL SIGNS: Reviewed HEENT: Head is atraumatic, normocephalic. Eyes, negative conjunctiva. No icterus. Mouth unremarkable. NECK: Supple. No increased JVD. Negative thyromegaly. Central trachea. RESPIRATORY: Chest is clear to auscultation. CARDIOVASCULAR: S1 and S2 audible. Unable to hear an S3 gallop. GI: Abdomen soft, no organomegaly. Positive bowel sounds. MUSCULOSKELETAL: No cyanosis or pedal edema appreciated. STUDENT AFFAIRS DEAN: Grossly intact. SKIN: Warm and dry. PSYCH: Sad affect. Not looking anxious. A/P Assessment and Plan 1. Severe depression with intentional overdose of drugs. 2. Status post salicylate overdose. 3. Abnormal EEG 4. Constipation 5. Chronic nicotine abuse RECOMMENDATIONS 1. Psych treatment, evaluation and management as per Psychiatrist. 2. Continue Phenytoin while in the hospital. Once she is Discharged, it can be DC'd. 3. Encouraged p.o. hydration. 4. Labs reviewed. 5. The patient has been counseled about anti-smoking. 6. Colace and p.r.n. MiraLax for constipation. It is not helping plan for Dulcolax suppository 7. Discussed with the patient. sylvie for headach 8. will sign off Radha Velez MD Oct 05, 2016 11:53
[2016-10-05] MEDS: clonazePAM 0.5 MG TAB PO PRN (11:57)
[2016-10-05] MEDS: LORazepam 1 MG TAB PO PRN (16:47)
== END 2016-10-05 17:30 | disposition home or self-care (01) | DRG 885 ==
LOC: H260 14:27 → H270 15:15 → H260 10-03 14:25
PROVIDERS: ADMIT Psychiatry & Neurology Psychiatry; ATTEND Psychiatry & Neurology Psychiatry
DX: F31.89 Other bipolar disorder (principal); B37.9 Candidiasis, unspecified; F41.9 Anxiety disorder, unspecified; F60.3 Borderline personality disorder; F17.210 Nicotine dependence, cigarettes, uncomplicated; T45.0X2A Poisoning by antiallergic and antiemetic drugs, intentional self-harm, initial encounter; T39.012A Poisoning by aspirin, intentional self-harm, initial encounter; F43.10 Post-traumatic stress disorder, unspecified; Z62.810 Personal history of physical and sexual abuse in childhood; K59.00 Constipation, unspecified; R94.01 Abnormal electroencephalogram [EEG]; Z56.0 Unemployment, unspecified
CPT/HCPCS: 80048; 80061; 83036

== ENCOUNTER 2017-10-05 22:45 | Emergency (ER) | payer SELFPAY ==
[~2017-10-05 22:45] MED LIST changes: +ARIP1TAB11 PO; +BUTATAB6 PO; -DILA100C PO; +NICO21DI2 T-DERMAL
[2017-10-05 23:07] VITALS: BP 128/83; PULSE 93; RESP 17; TEMP 97.8; O2SAT 97
[2017-10-06 00:51] LABS: AUTOMATED NEUTROPHIL # 5.1 TH/MM3 (1.8-7.7); BASOPHIL % 0.3 % (0.0-2.0); EOSINOPHIL # 0.1 TH/MM3 (0-0.4); HEMATOCRIT 41.4 % (35.0-46.0); HEMOGLOBIN 13.8 GM/DL (11.6-15.3); LYMPH % 28.6 % (9.0-44.0); LYMPHOCYTE # 2.3 TH/MM3 (1.0-4.8); MEAN CORPUSCULAR HEMOGLOBIN 28.6 PG (27.0-34.0); MEAN CORPUSCULAR HGB CONC 33.3 % (32.0-36.0); MONOCYTE # 0.5 TH/MM3 (0-0.9); NEUT % 64.1 % (16.0-70.0); PLATELET COUNT 223 TH/MM3 (150-450); RED BLOOD COUNT 4.82 MIL/MM3 (4.00-5.30); RED CELL DISTRIBUTION WIDTH 13.6 % (11.6-17.2)
[2017-10-06 01:16] LABS: ALKALINE PHOSPHATASE 73 U/L (45-117); ALT (GPT) 26 U/L (10-53); TOTAL BILIRUBIN ADULT 0.1 MG/DL (0.2-1.0); TOTAL PROTEIN 7.1 GM/DL (6.4-8.2)
[2017-10-06 01:20] LABS: ALBUMIN 3.4 GM/DL (3.4-5.0); AST (GOT) 17 U/L (15-37); BLOOD UREA NITROGEN 14 MG/DL (7-18); CALCIUM 8.5 MG/DL (8.5-10.1); CHLORIDE 106 MEQ/L (98-107); CREATININE 0.64 MG/DL (0.50-1.00); GLOMERULAR FILTRATION RATE 97 ML/MIN (>89); GLUCOSE,RANDOM 119 MG/DL (74-106); SODIUM (NA) 141 MEQ/L (136-145)
--- NOTE | 2017-10-06 03:56 | PD ---
HPI Chief Complaint: Psychiatric Symptoms Time Seen by Provider: 02:03 Travel History International Travel<30 days: No Contact w/Intl Traveler<30days: No Traveled to known affect area: No History of Present Illness HPI This is a 52-year-old white female brought to the ER under Hernández act by PD. According to the Hernández act the patient had made suicidal statements during a verbal altercation with her mother. The patient here had told staff that she is not truly suicidal. She states that her mother makes these things up when they fight. The patient during my encounter was very uncooperative. She had refused answer questions appropriately. She answered no to every question. She is unwilling to participate with the interview. PFSH Past Medical History Asthma: No Autoimmune Disease: No Anxiety: Yes Depression: Yes Cancer: No Cardiovascular Problems: No Chemotherapy: No COPD: No Diabetes: No Diminished Hearing: No Endocrine: No Genitourinary: No Immune Disorder: No Musculoskeletal: No Neurologic: No Psychiatric: No Reproductive: No Respiratory: No Immunizations Current: Yes Radiation Therapy: No Renal Failure: No Seizures: Yes (possibly - syncopy during transfer to hospital) Sickle Cell Disease: No Thyroid Disease: No Tetanus Vaccination: Unknown Influenza Vaccination: No ?: Not Tubal Ligation: Yes Past Surgical History Abdominal Surgery: No () Arteriovenous Shunt: No Section: Yes (X 1) Gynecologic Surgery: Yes (c-sections) Insulin Pump: No Joint Replacement: No Pacemaker: No Tonsillectomy: Yes Social History Alcohol Use: Yes (RARELY) Tobacco Use: Yes (1/2PPD to one pack per day) Substance Use: Yes Allergies-Medications (Allergen,Severity, Reaction): Coded Allergies: No Known Allergies (Verified Adverse Reaction, Unknown, 10/05/17) Reported Meds & Prescriptions Reported Meds & Active Scripts Active Bczydbdfeu-Crkgqqzbqhdtu-Lbqigrsb 50-325-40 Mg Tab 1 Tab PO TID PRN Nicotine Patch (Nicotine) 21 Mg/24 Hr Patch 1 Patch T-DERMAL DAILY 15 Days Paroxetine (Paroxetine HCl) 20 Mg Tab 10 Mg PO DAILY 15 Days Klonopin (Clonazepam) 0.5 Mg Tab 0.5 Mg PO BID PRN 15 Days Aripiprazole 5 Mg Tab 5 Mg PO DAILY 15 Days Review of Systems ROS Limitations: Uncooperative Physical Exam Narrative GENERAL: Well-nourished, well-developed patient. SKIN: Warm and dry. HEAD: Normocephalic and atraumatic. EYES: No scleral icterus. No injection or drainage. ENT: No nasal drainage noted. Mucous membranes pink. Airway patent. NECK: Supple, trachea midline. Moves head freely without obvious discomfort. CARDIOVASCULAR: Regular rate and rhythm without murmurs, gallops, or rubs. RESPIRATORY: Breath sounds equal bilaterally. No accessory muscle use. GASTROINTESTINAL: Abdomen soft, non-tender, nondistended. EXTREMITIES: No cyanosis or edema. BACK: Nontender without obvious deformity. No CVA tenderness. NEURO: Patient is alert and oriented. no sensorimotor deficits. Nonfocal. Normal speech. PSYCH: No delusions. No auditory or visual hallucinations. Data Data Last Documented VS Vital Signs Date Time Temp Pulse Resp B/P (MAP) Pulse Ox O2 Delivery O2 Flow Rate FiO2 10/05/17 23:07 97.8 93 17 128/83 (98) 97 Orders Orders Complete Blood Count With Diff (10/05/17 23:55) Comprehensive Metabolic Panel (10/05/17 23:55) Psych Screen (10/05/17 23:55) Drug Screen, Random Urine (10/05/17 23:55) Salicylates (Aspirin) (10/05/17 23:55) Tylenol (Acetaminophen) (10/06/17 02:05) Labs Laboratory Tests Test 10/06/17 00:00 White Blood Count 8.0 TH/MM3 Red Blood Count 4.82 MIL/MM3 Hemoglobin 13.8 GM/DL Hematocrit 41.4 % Mean Corpuscular Volume 86.0 FL Mean Corpuscular Hemoglobin 28.6 PG Mean Corpuscular Hemoglobin Concent 33.3 % Red Cell Distribution Width 13.6 % Platelet Count 223 TH/MM3 Mean Platelet Volume 10.0 FL Neutrophils (%) (Auto) 64.1 % Lymphocytes (%) (Auto) 28.6 % Monocytes (%) (Auto) 6.0 % Eosinophils (%) (Auto) 1.0 % Basophils (%) (Auto) 0.3 % Neutrophils # (Auto) 5.1 TH/MM3 Lymphocytes # (Auto) 2.3 TH/MM3 Monocytes # (Auto) 0.5 TH/MM3 Eosinophils # (Auto) 0.1 TH/MM3 Basophils # (Auto) 0.0 TH/MM3 CBC Comment DIFF FINAL Differential Comment Blood Urea Nitrogen 14 MG/DL Creatinine 0.64 MG/DL Random Glucose 119 MG/DL Total Protein 7.1 GM/DL Albumin 3.4 GM/DL Calcium Level 8.5 MG/DL Alkaline Phosphatase 73 U/L Aspartate Amino Transf (AST/SGOT) 17 U/L Alanine Aminotransferase (ALT/SGPT) 26 U/L Total Bilirubin 0.1 MG/DL Sodium Level 141 MEQ/L Potassium Level 3.7 MEQ/L Chloride Level 106 MEQ/L Carbon Dioxide Level 27.0 MEQ/L Anion Gap 8 MEQ/L Estimat Glomerular Filtration Rate 97 ML/MIN Salicylates Level LESS THAN 1.7 MG/DL Urine Opiates Screen NEG Acetaminophen Level LESS THAN 2.0 MCG/ML Urine Barbiturates Screen NEG Urine Amphetamines Screen POS Urine Benzodiazepines Screen NEG Urine Cocaine Screen POS Urine Cannabinoids Screen NEG MDM Medical Decision Making Medical Screen Exam Complete: Yes Emergency Medical Condition: Yes Medical Record Reviewed: Yes Interpretation(s) Laboratory Tests Test 10/06/17 00:00 White Blood Count 8.0 TH/MM3 Red Blood Count 4.82 MIL/MM3 Hemoglobin 13.8 GM/DL Hematocrit 41.4 % Mean Corpuscular Volume 86.0 FL Mean Corpuscular Hemoglobin 28.6 PG Mean Corpuscular Hemoglobin Concent 33.3 % Red Cell Distribution Width 13.6 % Platelet Count 223 TH/MM3 Mean Platelet Volume 10.0 FL Neutrophils (%) (Auto) 64.1 % Lymphocytes (%) (Auto) 28.6 % Monocytes (%) (Auto) 6.0 % Eosinophils (%) (Auto) 1.0 % Basophils (%) (Auto) 0.3 % Neutrophils # (Auto) 5.1 TH/MM3 Lymphocytes # (Auto) 2.3 TH/MM3 Monocytes # (Auto) 0.5 TH/MM3 Eosinophils # (Auto) 0.1 TH/MM3 Basophils # (Auto) 0.0 TH/MM3 CBC Comment DIFF FINAL Differential Comment Blood Urea Nitrogen 14 MG/DL Creatinine 0.64 MG/DL Random Glucose 119 MG/DL Total Protein 7.1 GM/DL Albumin 3.4 GM/DL Calcium Level 8.5 MG/DL Alkaline Phosphatase 73 U/L Aspartate Amino Transf (AST/SGOT) 17 U/L Alanine Aminotransferase (ALT/SGPT) 26 U/L Total Bilirubin 0.1 MG/DL Sodium Level 141 MEQ/L Potassium Level 3.7 MEQ/L Chloride Level 106 MEQ/L Carbon Dioxide Level 27.0 MEQ/L Anion Gap 8 MEQ/L Estimat Glomerular Filtration Rate 97 ML/MIN Salicylates Level LESS THAN 1.7 MG/DL Urine Opiates Screen NEG Acetaminophen Level LESS THAN 2.0 MCG/ML Urine Barbiturates Screen NEG Urine Amphetamines Screen POS Urine Benzodiazepines Screen NEG Urine Cocaine Screen POS Urine Cannabinoids Screen NEG Differential Diagnosis MDM: High Differential diagnoses: Schizophrenia, schizoaffective disorder, bipolar, anxiety, depression, adjustment reaction, mood disorder NOS, ODD, depressive disorder NOS, dementia, dementia with agitation, psychosis NOS, substance induced mood disorder, DMDD, Asperger syndrome, infection,electrolyte abnormality, malingering. Narrative Course Mental health screening discussed with the patient. Psychiatric screen ordered. The patient's been medically clear. This is medical clearance for psychiatric admission, substance abuse Diagnosis Primary Impression: Medical clearance for psychiatric admission Additional Impression: Substance abuse Condition: Stable Adrian Person Oct 06, 2017 03:56
[2017-10-06 06:13] VITALS: BP 144/65; PULSE 98; RESP 18; O2SAT 97
[2017-10-06 09:55] VITALS: BP 125/62; PULSE 90; RESP 18; O2SAT 97
--- NOTE | 2017-10-06 12:26 | PD ---
History of Present Illness Chief Complaint: Psychiatric Symptoms Time Seen by Provider: 12:15 Travel History International Travel<30 Days: No Contact w/Intl Traveler<30days: No Known affected area: No Legal Status Legal Status: Hernández Act Hernández Act Signed By: Roseanna Fairchild Hernández Act Comment: 10/05/2017 1015 PM OFC. Shanon CAMARA #[phone] History of Present Illness: 52-year-old female brought in under a Hernández act after allegedly making suicidal threats. According to the Hernández act completed by law enforcement, the patient was seen last evening. The patient's mother made a sworn statement that the patient was expressing suicidal thoughts. The mother told law enforcement the patient stated she had "no reason to live any longer and that life was too hard. " The Hernández act also indicates the patient had been admitted to [facility] and to act. The patient is diagnosed with PTSD. The patient is allegedly prescribed medication which she has not taken recently. Her toxicology screen is positive for amphetamines and cocaine. Upon interview, the patient repeatedly and vehemently denies any suicidal ideation, plan or intent. She denies any homicidal ideation, plan or intent. She is verbally emma for safety and she is competent to do so. She has no significant evidence of intoxication at this time, psychotic symptoms or cognitive deficits. PFSH Past Medical History Asthma: No Autoimmune Disease: No Anxiety: Yes Depression: Yes Cancer: No Cardiovascular Problems: No Chemotherapy: No COPD: No Diabetes: No Diminished Hearing: No Endocrine: No Genitourinary: No Immune Disorder: No Musculoskeletal: No Neurologic: No Psychiatric: No Reproductive: No Respiratory: No Immunizations Current: Yes Radiation Therapy: No Renal Failure: No Seizures: Yes (possibly - syncopy during transfer to hospital) Sickle Cell Disease: No Thyroid Disease: No Tetanus Vaccination: Unknown Influenza Vaccination: No ?: Not Tubal Ligation: Yes Past Surgical History Abdominal Surgery: No () Arteriovenous Shunt: No Section: Yes (X 1) Gynecologic Surgery: Yes (c-sections) Insulin Pump: No Joint Replacement: No Pacemaker: No Tonsillectomy: Yes Psychiatric History Psychiatric History Hx Psychiatric Treatment: Patient with a history of bipolar disorder and PTSD. She was last admitted to our psychiatric services Oct 01-2016 for MDD, recurrent severe. This physician did review the electronic medical record of the patient's overdose, treatment on psychiatry, traits of personality disorder, etc. Patient does not show any significant clinically objective evidence of bipolar disorder or major depression at this time. She does show significant symptoms of a personality disorder and substance abuse. History of Inpatient Treatment: Yes Guns or firearms in home: No Social History Hx Alcohol Use: Yes (RARELY) Hx Tobacco Use: Yes (1/2PPD to one pack per day) Hx Substance Use: Yes (meth, cocaine) Substance Use Type: Amphetamines-Stimulants, Cocaine Hx of Substance Use Treatment: Yes Allergies-Medications (Allergen,Severity, Reaction): Coded Allergies: No Known Allergies (Verified Adverse Reaction, Unknown, 10/05/17) Reported Meds & Prescriptions Reported Meds & Active Scripts Active Okjizyyvuy-Ajvmazmeeueas-Fdqeofmk 50-325-40 Mg Tab 1 Tab PO TID PRN Nicotine Patch (Nicotine) 21 Mg/24 Hr Patch 1 Patch T-DERMAL DAILY 15 Days Paroxetine (Paroxetine HCl) 20 Mg Tab 10 Mg PO DAILY 15 Days Klonopin (Clonazepam) 0.5 Mg Tab 0.5 Mg PO BID PRN 15 Days Aripiprazole 5 Mg Tab 5 Mg PO DAILY 15 Days Review of Systems Psychiatric: COMPLAINS OF: Agitation Except as stated in HPI: all other systems reviewed are Neg Mental Status Examination Appearance: Appropriate Consciousness: Alert Orientation: x4 Motor Activity: Normal gait Speech: Unremarkable Language: Adequate Fund of Knowledge: Adequate Attention and Concentration: Adequate Memory: Unremarkable Mood: Irritable Affect: Irritable Thought Process & Associations: Intact Thought Content: Appropriate Hallucination Type: None Delusion Type: None Suicidal Ideation: No Suicidal Plan: No Suicidal Intention: No Homicidal Ideation: No Homicidal Plan: No Homicidal Intention: No Insight: Adequate Judgment: Adequate MDM Medical Decision Making Medical Record Reviewed: Yes Assessment/Plan Patient interviewed at bedside. Electronic medical record reviewed. Case discussed with nurse Bella. Patient is not felt to meet Hernández act criteria at this time. She was encouraged to obtain treatment for drug abuse at [facility]. However, patient is verbally emma for safety and she is competent to do so. She does not meet criteria for involuntary psychiatric hospitalization and she wants to go home. She has no cognitive deficits and no psychotic symptoms at this time. She is verbally emma for safety and she is competent to do so. Orders Orders Complete Blood Count With Diff (10/05/17 23:55) Comprehensive Metabolic Panel (10/05/17 23:55) Psych Screen (10/05/17 23:55) Drug Screen, Random Urine (10/05/17 23:55) Salicylates (Aspirin) (10/05/17 23:55) Tylenol (Acetaminophen) (10/06/17 02:05) Diet Regular Basic (10/06/17 Breakfast) Diet Regular Basic (10/06/17 Lunch) Results Vital Signs Date Time Temp Pulse Resp B/P (MAP) Pulse Ox O2 Delivery O2 Flow Rate FiO2 10/06/17 09:55 90 18 125/62 (83) 97 10/06/17 06:13 98 18 144/65 (91) 97 Room Air 10/05/17 23:07 97.8 93 17 128/83 (98) 97 Laboratory Tests Test 10/06/17 00:00 White Blood Count 8.0 Red Blood Count 4.82 Hemoglobin 13.8 Hematocrit 41.4 Mean Corpuscular Volume 86.0 Mean Corpuscular Hemoglobin 28.6 Mean Corpuscular Hemoglobin Concent 33.3 Red Cell Distribution Width 13.6 Platelet Count 223 Mean Platelet Volume 10.0 Neutrophils (%) (Auto) 64.1 Lymphocytes (%) (Auto) 28.6 Monocytes (%) (Auto) 6.0 Eosinophils (%) (Auto) 1.0 Basophils (%) (Auto) 0.3 Neutrophils # (Auto) 5.1 Lymphocytes # (Auto) 2.3 Monocytes # (Auto) 0.5 Eosinophils # (Auto) 0.1 Basophils # (Auto) 0.0 CBC Comment DIFF FINAL Differential Comment Blood Urea Nitrogen 14 Creatinine 0.64 Random Glucose 119 Total Protein 7.1 Albumin 3.4 Calcium Level 8.5 Alkaline Phosphatase 73 Aspartate Amino Transf (AST/SGOT) 17 Alanine Aminotransferase (ALT/SGPT) 26 Total Bilirubin 0.1 Sodium Level 141 Potassium Level 3.7 Chloride Level 106 Carbon Dioxide Level 27.0 Anion Gap 8 Estimat Glomerular Filtration Rate 97 Salicylates Level LESS THAN 1.7 Urine Opiates Screen NEG Acetaminophen Level LESS THAN 2.0 Urine Barbiturates Screen NEG Urine Amphetamines Screen POS Urine Benzodiazepines Screen NEG Urine Cocaine Screen POS Urine Cannabinoids Screen NEG Diagnosis Primary Impression: Cocaine abuse Condition: Stable Lalo Flannery MD Oct 06, 2017 12:26
--- NOTE | 2017-10-06 13:01 | PD ---
Physical Exam Date Seen by Provider: Oct 06, 2017 Time Seen by Provider: 12:59 Narrative 52-year-old female presented to our facility under Hernández act. Patient has been medically and psychiatrically cleared at this time. I have been asked disposition the patient. Data Data Last Documented VS Vital Signs Date Time Temp Pulse Resp B/P (MAP) Pulse Ox O2 Delivery O2 Flow Rate FiO2 10/06/17 09:55 90 18 125/62 (83) 97 10/06/17 06:13 Room Air 10/05/17 23:07 97.8 Orders Orders Complete Blood Count With Diff (10/05/17 23:55) Comprehensive Metabolic Panel (10/05/17 23:55) Psych Screen (10/05/17 23:55) Drug Screen, Random Urine (10/05/17 23:55) Salicylates (Aspirin) (10/05/17 23:55) Tylenol (Acetaminophen) (10/06/17 02:05) Diet Regular Basic (10/06/17 Breakfast) Diet Regular Basic (10/06/17 Lunch) Labs Laboratory Tests Test 10/06/17 00:00 White Blood Count 8.0 TH/MM3 Red Blood Count 4.82 MIL/MM3 Hemoglobin 13.8 GM/DL Hematocrit 41.4 % Mean Corpuscular Volume 86.0 FL Mean Corpuscular Hemoglobin 28.6 PG Mean Corpuscular Hemoglobin Concent 33.3 % Red Cell Distribution Width 13.6 % Platelet Count 223 TH/MM3 Mean Platelet Volume 10.0 FL Neutrophils (%) (Auto) 64.1 % Lymphocytes (%) (Auto) 28.6 % Monocytes (%) (Auto) 6.0 % Eosinophils (%) (Auto) 1.0 % Basophils (%) (Auto) 0.3 % Neutrophils # (Auto) 5.1 TH/MM3 Lymphocytes # (Auto) 2.3 TH/MM3 Monocytes # (Auto) 0.5 TH/MM3 Eosinophils # (Auto) 0.1 TH/MM3 Basophils # (Auto) 0.0 TH/MM3 CBC Comment DIFF FINAL Differential Comment Blood Urea Nitrogen 14 MG/DL Creatinine 0.64 MG/DL Random Glucose 119 MG/DL Total Protein 7.1 GM/DL Albumin 3.4 GM/DL Calcium Level 8.5 MG/DL Alkaline Phosphatase 73 U/L Aspartate Amino Transf (AST/SGOT) 17 U/L Alanine Aminotransferase (ALT/SGPT) 26 U/L Total Bilirubin 0.1 MG/DL Sodium Level 141 MEQ/L Potassium Level 3.7 MEQ/L Chloride Level 106 MEQ/L Carbon Dioxide Level 27.0 MEQ/L Anion Gap 8 MEQ/L Estimat Glomerular Filtration Rate 97 ML/MIN Salicylates Level LESS THAN 1.7 MG/DL Urine Opiates Screen NEG Acetaminophen Level LESS THAN 2.0 MCG/ML Urine Barbiturates Screen NEG Urine Amphetamines Screen POS Urine Benzodiazepines Screen NEG Urine Cocaine Screen POS Urine Cannabinoids Screen NEG MDM Supervised Visit with ERNESTO: Yes Narrative Course 52-year-old female presented to our facility under Hernández act. Patient has been medically and psychiatrically cleared at this time. I have been asked disposition the patient. Patient stable for discharge. Patient will be discharged home at this time. Diagnosis Primary Impression: Cocaine abuse Disposition: 01 DISCHARGE HOME Condition: Stable Jess Brown Oct 06, 2017 13:01
== END 2017-10-06 14:35 | disposition home or self-care (01) ==
LOC: NEPJ 22:45
DX: F14.10 Cocaine abuse, uncomplicated (principal); F15.90 Other stimulant use, unspecified, uncomplicated; F31.9 Bipolar disorder, unspecified; F43.10 Post-traumatic stress disorder, unspecified; F17.210 Nicotine dependence, cigarettes, uncomplicated
CPT/HCPCS: 80053; 80307; 85025; 99284